=== PATIENT | male | born 1985 | race American Indian/Alaskan Native ===

== ENCOUNTER 2016-07-06 17:52 | Emergency (ER) | payer SELFPAY ==
[2016-07-06 19:18] VITALS: BP 135/90; PULSE 105; RESP 16; TEMP 98.3; O2SAT 100
--- NOTE | 2016-07-06 20:22 | ED PDOC ---
HPI: Abdomen Time Seen by Provider: 07/06/16 18:25 Chief Complaint (Nursing): Back Pain Chief Complaint (Provider): Left Flank Pain History Per: Patient History/Exam Limitations: no limitations Onset/Duration Of Symptoms: Days (x2) Outside of [place] travel?: No Current Symptoms Are (Timing): Still Present Severity: Moderate Associated Symptoms: Nausea, Diarrhea (non-bloody), Urinary Symptoms (hematuria) Additional Complaint(s): Rian Cleary is a 31 year old male, with a past medical history inclusive of previous kidney stones (passed on own w/o surgical intervention, no recent urology followup), who presents to the ED on 07/06/16 for the evaluation of moderate left flank pain that he has experienced x2 days. Associated hematuria also reported in addition to both nausea and non-bloody diarrhea. Denies fever, chills, chest pain or shortness of breath. PMD: none Past Medical History Reviewed: Historical Data, Nursing Documentation, Vital Signs Vital Signs: Last Vital Signs Temp 98.3 F 07/06/16 19:15 Pulse 105 H 07/06/16 19:15 Resp 16 07/06/16 19:15 BP 135/90 07/06/16 19:15 Pulse Ox 100 07/07/16 00:10 - Medical History PMH: Back Problems (Herniated discs), Kidney Stones - Surgical History Surgical History: No Surg Hx - Family History Family History: States: Unknown Family Hx - Social History Current smoker - smoking cessation education provided: Yes (1/2 ppd) Alcohol: None Drugs: Denies - Immunization History Hx Tetanus Toxoid Vaccination: No Hx Influenza Vaccination: Yes Hx Pneumococcal Vaccination: No - Home Medications Home Medications: Ambulatory Orders Medication Instructions Recorded Ciprofloxacin [Cipro] 1 tab PO BID #10 tab 05/06/16 Hydrocodone/Ibuprofen 1 each PO Q6 #14 tablet 05/06/16 [Hydrocodone-Ibuprofen 5-200 mg] Tamsulosin [Flomax] 0.4 mg PO DAILY #10 cap 05/06/16 Ciprofloxacin HCl [Cipro] 500 mg PO BID #20 tab 07/07/16 Ibuprofen [Motrin] 600 mg PO Q6H PRN #20 tab 07/07/16 Tamsulosin [Flomax] 0.4 mg PO DAILY #14 cap 07/07/16 - Allergies Allergies/Adverse Reactions: Allergies Allergy/AdvReac Type Severity Reaction Status Date / Time No Known Allergies Allergy Verified 07/06/16 19:15 Review of Systems ROS Statement: Except As Marked, All Systems Reviewed And Found Negative Constitutional: Negative for: Fever, Chills Cardiovascular: Negative for: Chest Pain Respiratory: Negative for: Shortness of Breath Gastrointestinal: Positive for: Nausea, Abdominal Pain (left flank pain), Diarrhea (non-bloody) Physical Exam - Reviewed Nursing Documentation Reviewed: Yes Vital Signs Reviewed: Yes - Physical Exam Appears: Positive for: Non-toxic, No Acute Distress (comfortable) Head Exam: Positive for: ATRAUMATIC, NORMOCEPHALIC Skin: Positive for: Normal Color, Warm, Dry Cardiovascular/Chest: Positive for: Regular Rate, Rhythm. Negative for: Murmur Respiratory: Positive for: Normal Breath Sounds. Negative for: Respiratory Distress Gastrointestinal/Abdominal: Positive for: Soft, Tenderness (very minor left flank) Back: Positive for: Normal Inspection. Negative for: L CVA Tenderness, R CVA Tenderness, Vertebral Tenderness Extremity: Positive for: Normal ROM Neurologic/Psych: Positive for: Alert, Oriented - Laboratory Results Result Diagrams: 07/06/16 20:55 07/06/16 20:55 - ECG O2 Sat by Pulse Oximetry: 100 (RA) Pulse Ox Interpretation: Normal Medical Decision Making Medical Decision Makin:20 Initial Impression: flank pain; will r/o infection, UTI Initial Plan: * Labs * Urinalysis * Urine C&S * IV NS 1000ml at 150mls/hr * Morphine 4mg IV * Toradol 30mg IV * Zofran 4mg IV * Reevaluation 22:04 Labs reviewed with no clinically significant abnormalities. Urinalysis shows RBC count of 153 but only small leukocyte esterase. Will order CT A/P w/o contrast in order to assess for possible kidney stone. 22:[address] 0008: Patient tolerating PO and is stable for d/c. Likely has kidney stone based on urine, but refused CT scan stating he has had many in the past. pt tolerated po in the ED and feels improved. Instructed to f/u urologist and return to ED with worsening or concerning symptoms. Scribe Attestation: Documented by Annmarie Issa and Jakob Mireles acting as scribes for Shannan Olivo MD. Provider Scribe Attestation: All medical record entries made by the Scribe were at my direction and personally dictated by me. I have reviewed the chart and agree that the record accurately reflects my personal performance of the history, physical exam, medical decision making, and the department course for this patient. I have also personally directed, reviewed, and agree with the discharge instructions and disposition. Disposition - Clinical Impression Clinical Impression: Renal colic - Patient ED Disposition Is Patient to be Admitted: No Counseled Patient/Family Regarding: Studies Performed, Diagnosis, Need For Followup - Disposition Referrals: [facility] [Outside] Colin Lee MD [Medical Doctor] - Disposition: Routine/Home Disposition Time: 21:10 Condition: GOOD Additional Instructions: follow up with urology as instructed. return to the ED with any worsening or concerning symptoms. Prescriptions: Ciprofloxacin HCl [Cipro] 500 mg PO BID #20 tab Tamsulosin [Flomax] 0.4 mg PO DAILY #14 cap Ibuprofen [Motrin] 600 mg PO Q6H PRN #20 tab PRN Reason: Pain, Moderate (4-7) Instructions: Renal Colic (ED)
[2016-07-06] MEDS ORDERED: Sodium Chloride 0.9% 1,000 ML IV STA (20:27)
[2016-07-06 21:01] LABS: BASO # 0.1 K/uL (0.0-0.2); BASO % 0.7 % (0.0-2.0); EOS # 0.2 K/uL (0.0-0.7); EOS % 3.2 % (0.0-4.0); HEMATOCRIT 41.9 % (35.0-51.0); LYMPH # 2.1 K/uL (1.0-4.3); LYMPH % 29.4 % (20.0-40.0); MEAN CELL VOLUME 85.6 fl (80.0-94.0); MEAN CORPUSCULAR HEMOGLOBIN 28.4 pg (27.0-31.0); MEAN CORPUSCULAR HGB CONC 33.2 g/dL (33.0-37.0); MEAN PLATELET VOLUME 8.9 fl (7.2-11.7); MONO # 0.3 K/uL (0.0-0.8); MONO % 4.3 % (0.0-10.0); NEUT # 4.5 K/uL (1.8-7.0); NEUT % 62.4 % (50.0-75.0); RED CELL DISTRIBUTION WIDTH 13.1 % (11.5-14.5); WHITE BLOOD COUNT 7.3 K/uL (4.8-10.8)
[2016-07-06 21:13] LABS: RBC URINE 153 /hpf (0-3); URINE BACTERIA RARE (<OCC); URINE BILIRUBIN NEGATIVE (NEGATIVE); URINE BLOOD LARGE (NEGATIVE); URINE CALCIUM OXALATE CRYSTALS OCC /hpf (<OCC); URINE COLOR RED (YELLOW); URINE GLUCOSE (UA) NEG (Normal); URINE KETONE NEGATIVE (NEGATIVE); URINE LEUKOCYTE ESTERASE SMALL Leu/uL (Negative); URINE PROTEIN >=500 mg/dL (NEGATIVE); URINE UROBILINOGEN 0.2-1.0 mg/dL (0.2-1.0); WBC URINE 21 /hpf (0-5)
[2016-07-06 21:14] LABS: AST/SGOT 25 U/L (17-59); BILIRUBIN,TOTAL 0.4 mg/dl (0.2-1.3); BLOOD UREA NITROGEN 12 mg/dl (9-20); CARBON DIOXIDE 25 mmol/L (22-30); GFR AFRICAN-AMERICAN > 60; GLUCOSE,RANDOM 100 mg/dL (75-110)
[2016-07-06 21:22] LABS: ALB/GLOB RATIO 1.4 (1.0-2.1); ALKALINE PHOSPHATASE 58 U/L (38-126); ALT/SGPT 26 U/L (21-72); CHLORIDE 105 mmol/L (98-107); SODIUM 144 mmol/l (132-148)
[2016-07-06 21:33] LABS: CALCIUM 9.2 mg/dL (8.4-10.2); TOTAL PROTEIN 7.7 G/DL (6.3-8.2)
[2016-07-07] MEDS ORDERED: Oxycodone/Acetaminophen 5/325 mg Tab PO ONE (00:12)
[2016-07-07] MEDS ORDERED: Oxycodone/Acetaminophen 5/325 mg Tab ONE (00:35)
== END 2016-07-06 21:19 | disposition home or self-care (01) ==
LOC: H.ER 17:52
DX: N23 Unspecified renal colic (principal); Z87.442 Personal history of urinary calculi
CPT/HCPCS: 80053; 81003; 85025; 87086; 99283; J1885; J2270; J2405; J7040